=== PATIENT | male | born 1970 | race Caucasian/White ===

== ENCOUNTER 2021-09-20 09:12 | Emergency (ER) | payer MEDICAID ==
[~2021-09-20] VITALS: Ht 165.1 cm; Wt 89.6 kg
[2021-09-20 09:25] VITALS: BP 139/86
--- NOTE | 2021-09-20 09:27 | NUR ---
PT AMBULATED TO BED 08.
--- NOTE | 2021-09-20 09:57 | NUR ---
51 y/o female, c/o dizzy and chills for 6 mo, pt states dizzy sensation has been feeling worse for the past 3 days. denies any loc, syncopal episodes, head/neck injury or recent falls. denies nausea, vomiting, diarrhea. skin is pink/warm/dry. a&o x4 with even and steady gait. lungs clear bl, heart rate even and regular. pt denies dysuria, hematuria, urinary frequency or retention, or anyone sick in the household with the same symptoms. pt denies any fever, cp, sob, or cough at this time. pt states pain is 0/10 at this time. vss. patient positioned for comfort. hob elevated. bed down. gena made aware of pt. pm: denies nka med: denies Addendum: 09/20/21 at 1629 by [facility] 51 y/o male, c/o dizzy and chills for 6 mo, pt states dizzy sensation has been feeling worse for the past 3 days. denies any loc, syncopal episodes, head/neck injury or recent falls. denies nausea, vomiting, diarrhea. skin is pink/warm/dry. a&o x4 with even and steady gait. lungs clear bl, heart rate even and regular. pt denies dysuria, hematuria, urinary frequency or retention, or anyone sick in the household with the same symptoms. pt denies any fever, cp, sob, or cough at this time. pt states pain is 0/10 at this time. vss. patient positioned for comfort. hob elevated. bed down. gena made aware of pt. pmh: denies nka med: denies
[2021-09-20 10:34] LABS: EOSINOPHILS # (AUTO) 0.5 K/uL (0-0.4); EOSINOPHILS % (AUTO) 6.3 % (0.0-4.0); HEMATOCRIT 46.7 % (36-52); HEMOGLOBIN 16.5 g/dL (12.0-18.0); LYMPHOCYTES # (AUTO) 2.6 K/uL (2.0-11.5); LYMPHOCYTES % (AUTO) 33.7 % (20.5-51.1); MEAN CORPUSCULAR HEMOGLOBIN 32 pg (27-31); MEAN CORPUSCULAR HGB CONC 35 g/dL (33-37); MEAN CORPUSCULAR VOLUME 89.5 fL (80-94); MONOCYTES # (AUTO) 1.5 K/uL (0.8-1.0); PLATELET COUNT (AUTO) 270 K/uL (140-450); RED BLOOD CELL COUNT(AUTO) 5.22 MIL/uL (4.20-6.10); RED CELL DISTRIBUTION WIDTH 13.4 % (11.6-13.7); WHITE BLOOD COUNT (AUTO) 7.6 K/uL (4.8-10.8)
[2021-09-20] MEDS ORDERED: ACET-8386 PO (11:19)
[2021-09-20] MEDS ORDERED: NAPR-1704 PO (11:19)
[2021-09-20] MEDS ORDERED: ACYC400T14 PO (11:19)
--- NOTE | 2021-09-20 11:58 | NUR ---
PT RESTING , OFFERED BLANKET.
[2021-09-20 16:15] LABS: ALBUMIN 3.6 g/dL (3.4-5.0); ANION GAP 12.8 (8-16); CARBON DIOXIDE 27.2 mmol/L (21-32); CREATININE 0.9 mg/dL (0.6-1.3); THYROID STIMULATING HORMONE 0.89 uIU/mL (0.34-3.74); TOTAL BILIRUBIN 0.5 mg/dL (0.0-1.0)
[2021-09-20 16:37] VITALS: BP 129/88
--- NOTE | 2021-09-20 16:37 | NUR ---
The patient's care was reviewed and supervised by Jacqueline Holguin, RN, RN.
--- NOTE | 2021-09-20 16:38 | NUR ---
Patient discharged with v/s stable. Written and verbal after care instructions ABOUT DIZZINESS given and explained. Patient verbalized understanding. Ambulatory with steady gait. All questions addressed prior to discharge. Advised to follow up with PMD.
== END 2021-09-20 16:38 | disposition home or self-care (01) ==
LOC: MED 09:12
DX: R42 Dizziness and giddiness (principal); Z90.49 Acquired absence of other specified parts of digestive tract
CPT/HCPCS: 36415; 80053; 84443; 85025; 93005; 99284